=== PATIENT | male | born 1995 | race American Indian/Alaskan Native ===

== ENCOUNTER 2020-02-22 10:36 | Emergency (ER) | payer OTHER ==
[2020-02-22 11:01] VITALS: BP 143/87
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
== END 2020-02-22 14:31 | disposition home or self-care (01) ==
LOC: ED 10:36
DX: R51.9 Headache, unspecified (principal); M79.10 Myalgia, unspecified site; Z79.899 Other long term (current) drug therapy; V89.2XXA Person injured in unspecified motor-vehicle accident, traffic, initial encounter; Y93.89 Activity, other specified; Y92.410 Unspecified street and highway as the place of occurrence of the external cause; Y99.8 Other external cause status
CPT/HCPCS: 70450